=== PATIENT | male | born 1980 ===

== ENCOUNTER 2017-04-18 18:42 | Emergency (ER) | payer BC ==
[2017-04-18 19:29] VITALS: BP 132/84
--- NOTE | 2017-04-18 19:52 | UC ---
Upper Extremity HPI - HPI Summary HPI Summary: Fall in the shower and he hit is right mid forearm. he also hit his mid back but this he states already feels better and is only in mild pain with bending over. He denies numbness or symptoms down the legs. He denies wrist or elbow pain. he is right handed. - History of Current Complaint Chief Complaint: UCUpperExtremity Stated Complaint: RIGHT ARM INJURY Time Seen by Provider: 04/18/17 19:46 Hx Obtained From: Patient Onset/Duration: Sudden Onset, Lasting Hours Severity Initially: Moderate Severity Currently: Moderate Location Of Pain: Is Discrete @ Character: Sharp Aggravating Factor(s): Other - palpation. Alleviating Factor(s): Rest Associated Signs And Symptoms: Positive: Bruising. Negative: Numbness/Tingling - Allergies/Home Medications Allergies/Adverse Reactions: Allergies Allergy/AdvReac Type Severity Reaction Status Date / Time Codeine Allergy Difficulty Verified 04/18/17 19:29 Breathing Erythromycin Allergy Anaphylatic Verified 04/18/17 19:29 Shock Home Medications: Home Medications Loratadine [Claritin 10 MG CAP] 10 mg PO DAILY 04/18/17 [History Confirmed 04/18] PMH/Surg Hx/FS Hx/Imm Hx Previously Healthy: Yes - Surgical History Surgical History: Yes Surgery Procedure, Year, and Place: 3 right knee surgeries, hydocele - Family History Known Family History: Positive: Other - no related family history to the injury. - Social History Occupation: Employed Full-time Alcohol Use: Occasionally Substance Use Type: None Smoking Status (MU): Never Smoked Tobacco Review of Systems Musculoskeletal: Arthralgia All Other Systems Reviewed And Are Negative: Yes Physical Exam Triage Information Reviewed: Yes Appearance: Well-Appearing, No Pain Distress, Well-Nourished Vital Signs: Initial Vital Signs Temp 98 F 04/18/17 19:24 Pulse 85 04/18/17 19:24 Resp 14 04/18/17 19:24 BP 132/84 04/18/17 19:24 Pulse Ox 100 04/18/17 19:24 Vital Signs Reviewed: Yes Eyes: Positive: Conjunctiva Clear ENT: Positive: Normal ENT inspection Neck: Positive: Supple, Nontender, No Lymphadenopathy Respiratory: Positive: No respiratory distress, No accessory muscle use Cardiovascular: Positive: Brisk Capillary Refill Abdomen Description: Negative: Distended Musculoskeletal: Positive: Other: - point tenderness of the mid ulna. no deformity. No elbow or wrist tenderness. Neurological: Positive: Alert, Muscle Tone Normal Skin: Positive: Other - no bruising.. Negative: rashes Upper Extremity Course/Dx - Differential Dx/Diagnosis Provider Diagnoses: right forearm contusion. Discharge - Discharge Plan Condition: Good Disposition: HOME Patient Education Materials: Contusion in Adults (ED) Referrals: Antonio Dale MD [Primary Care Provider] - If Needed
--- NOTE | 2017-04-18 20:03 | RAD ---
INDICATION: Right forearm injury COMPARISON: None TECHNIQUE: AP and lateral views were obtained. FINDINGS: The bony structures, joint spaces, and soft tissues are normal for age. IMPRESSION: NEGATIVE EXAMINATION.
== END 2017-04-18 20:18 | disposition home or self-care (01) ==
LOC: UCCORT 18:42
DX: S50.11XA Contusion of right forearm, initial encounter (principal); W18.2XXA Fall in (into) shower or empty bathtub, initial encounter; Y92.9 Unspecified place or not applicable; Z88.5 Allergy status to narcotic agent
CPT/HCPCS: 99211; G0463

== ENCOUNTER 2017-07-26 12:59 | Emergency (ER) | payer BC ==
--- NOTE | 2017-07-26 16:49 | UC ---
Skin Complaint HPI - HPI Summary HPI Summary: 37 y/o male presents to the urgent care c/o VILLARREAL and a rash. Pt reports VILLARREAL has been for the past 18 days. He saw his PCP on 07/16/2017 and r/o Temporal arteritis and was Rx Fiorecet PO and schedule him for a Head CT for next week for further treatment. Pt states he took the Fioricet for 3 days and then VILLARREAL resolved. However yesterday, he developed a generalized rash w/ a lot of itchiness and VILLARREAL return this morning. He took Ibuprofen 600mg PO and VILLARREAL is resolving. Pain now is 3/10 in both temples. He can't recall eating something different or using a new lotion or detergent. Pt denies fever, neck pain, dizziness, SOB, chest pain, abdominal pain. N/V/D, photophobia. - History of Current Complaint Time Seen by Provider: 07/26/17 16:48 Stated Complaint: RASH/VILLARREAL Hx Obtained From: Patient Onset/Duration: Gradual Onset, Lasting Days - 2 days, Still Present, Worse Since - today Skin Exposure Onset/Duration: Days Ago - 2 days Onset Severity: Mild Current Severity: Moderate Pain Intensity: 0 Pain Scale Used: 0-10 Numeric Location: Generalized - sparing the soles and palms Character: Pruritus Aggravating Factor(s): Touch Alleviating Factor(s): Unknown Associated Signs & Symptoms: Positive: Rash. Negative: Nausea, Vomiting, Diaphoresis, Fever, Chest Pain, Hoarseness, Throat Tightening, Drainage, Tenderness Related History: Recent change in medication - Allergy/Home Medications Allergies/Adverse Reactions: Allergies Allergy/AdvReac Type Severity Reaction Status Date / Time MS Codeine [Codeine] Allergy Difficulty Verified 07/26/17 16:51 Breathing MS Erythromycin Allergy Anaphylatic Verified 07/26/17 16:51 [Erythromycin] Shock Home Medications: Home Medications Butalb/Acetamin/Caff TAB* [Fioricet TAB*] 1 tab PO Q6H PRN 07/26/17 [History Confirmed 07/26/17] Review of Systems Constitutional: Negative Skin: Rash - generalized rash paring the soles and palms ENT: Negative Respiratory: Negative Cardiovascular: Negative Gastrointestinal: Negative Genitourinary: Negative Motor: Negative Neurovascular: Negative Musculoskeletal: Negative Neurological: Headache Psychological: Negative Is Patient Immunocompromised?: No All Other Systems Reviewed And Are Negative: Yes PMH/Surg Hx/FS Hx/Imm Hx Previously Healthy: Yes - Pt denies PMHX - Surgical History Surgical History: Yes Surgery Procedure, Year, and Place: 3 right knee surgeries, hydrocele - Family History Known Family History: Positive: Hypertension, Other - no related family history to the injury. Family History: Stroke - Social History Occupation: Employed Full-time Lives: With Family Alcohol Use: Occasionally Substance Use Type: None Smoking Status (MU): Never Smoked Tobacco Physical Exam Triage Information Reviewed: Yes - Additional Comments Vital Signs Reviewed: Yes General: well developed, well nourished male sitting in the examining table w/o any apparent distress Eye Exam: Normal Eyes: Positive: Conjunctiva Clear - PERRLA, EOMI, fundi grossly normal ENT: Positive: Normal ENT inspection, Hearing grossly normal, Pharynx normal, TMs normal Neck: Positive: Supple, Nontender, No Lymphadenopathy Respiratory: Positive: Chest non-tender, Lungs clear, Normal breath sounds, No respiratory distress Cardiovascular: Positive: RRR, No Murmur, Pulses Normal, Brisk Capillary Refill Abdomen Description: Positive: Nontender, No Organomegaly, Soft. Negative: CVA Tenderness (R), CVA Tenderness (L) Bowel Sounds: Positive: Present Musculoskeletal: Positive: Strength Intact, ROM Intact, No Edema Neurological: Positive: Alert, Muscle Tone Normal Psychological Exam: Normal Skin: Positive: rashes - Positive generalized maculopapular erythematous eruption sparing the palms and soles, non tender to palpation, w/ signs of scoriation observed, no swelling or drainage observed. Course/Dx - Course Course Of Treatment: 37 y/o male presents to the urgent care c/o VILLARREAL and a rash. Pt reports VILLARREAL has been for the past 18 days. He saw his PCP on 07/16/2017 and r /o Temporal arteritis and was Rx Fiorecet PO and schedule him for a Head CT for next week for further treatment. Pt states he took the Fioricet for 3 days and then VILLARREAL resolved. However yesterday, he developed a generalized rash w/ a lot of itchiness and VILLARREAL return this morning. He took Ibuprofen 600mg PO and VILLARREAL is resolving. Pain now is 3/10 in both temples. He can't recall eating something different or using a new lotion or detergent. Pt denies fever, neck pain, dizziness, SOB, chest pain, abdominal pain. N/V/D, photophobia.Hx obtained. Pt w/ a gneralized maculopapulare rash, sparing palms and soles on examination. . Pt with an allergic reaction on unkown exposure or the FioricetPO. Pt Rx Prednisone PO, Benadryl PO and hidrocortisone topical cream and Naproxen PO for VILLARREAL. Pt Advised to f/u with PCP if not improvment of symptoms for further treatment. Pt advised if rash worsens despite medications and he develops SOB to immediately go to the ER for further treatment.Pt's BP is elevated today advised to decrease salt in diet, monitor BP and f/u with PCP for further management and advised taht this can be he cause of his VILLARREAL.BP retaken by Nurse Ada manually and was 136/96. Pt understood and agreed with plan of care - Differential Diagnoses - Skin Complaint Differential Diagnoses: Allergic Reaction, Contact Dermatitis, Drug Rash, Local Allergic Reaction, Medication; Adverse Reaction, Cuellar-John Syndrome, Urticaria - Diagnoses Provider Diagnoses: 1- Unspecified acute rash. 2- Headache. 3- elevated BP w/ o Hx of HTN Discharge - Discharge Plan Condition: Stable Disposition: HOME Prescriptions: diPHENhydraMINE PO* [Benadryl PO 25 MG TAB*] 25 mg PO Q6H PRN #20 tab PRN Reason: pruritus Hydrocortisone 1% CREAM* [Hytone Cream 1%*] 1 applic TOPICAL TID #1 tube Naproxen [Naproxen 500 mg] 500 mg PO Q8H PRN #30 tab PRN Reason: Headache predniSONE TAB* [Deltasone TAB*] 20 mg PO DAILY #11 tab Patient Education Materials: Acute Headache (ED), Acute Rash (ED), Low-Sodium Diet (ED) Referrals: Antonio Dale MD [Primary Care Provider] - 2 Days Additional Instructions: 1-Please Take Prednisone PO and Benadryl PO as directed . Also apply hydrocortisone topical cream to alleviate rash 2-Take Naproxen PO after meals for Headache. F/u w/ your PCP for the Schedule Head CT for further evaluation and treatment 3-If symptoms worsen and you develop fever, SOB, please go immediately to the ER for further evaluation and treatment. 4-Your BP is elevated today. please decrease salt in your diet, monitor BP and if it continues to be elevated please f/u with your PCP for further management
[2017-07-26 17:02] VITALS: BP 165/101
== END 2017-07-26 17:37 | disposition home or self-care (01) ==
LOC: UCCORT 12:59
DX: R21 Rash and other nonspecific skin eruption (principal); R51 Headache; R03.0 Elevated blood-pressure reading, without diagnosis of hypertension; Z88.1 Allergy status to other antibiotic agents; Z88.5 Allergy status to narcotic agent
CPT/HCPCS: 99212; G0463